=== PATIENT | female | born 1935 | race Caucasian/White ===

== ENCOUNTER 2023-05-29 08:33 | Outpatient (CLI) | payer MEDICARE | END 2023-05-29 23:59 | disposition critical access hospital (66) | LOC: EMS 08:33 | DX: R29.898 Other symptoms and signs involving the musculoskeletal system (principal) | CPT/HCPCS: A0425; A0429 ==

== ENCOUNTER 2023-05-29 09:11 | Observation (INO) | payer MEDICARE, OTHER ==
--- NOTE | 2023-05-29 09:15 | ED Physician Documentation ---
PD HPI FOCAL NEURO - Stated complaint Stated Complaint: CODE STROKE - History obtained from History obtained from: Patient - History of Present Illness Timing - onset: Enter time (814), Today Timing - duration: Minutes Timing - details: Abrupt onset, Still present in ED Severity of deficit: Mild Weakness: Arm, Right Numbness: No: Face, Arm, Hand, Leg, Foot, Right, Left Associated symptoms: No: Headache, Nausea / vomiting, Seizure, Syncope, Fall, Head injury, Chest pain, Neck pain, Back pain, Fever Baseline status: positive: A&OX3, ambulatory, indep Similar symptoms before: Has not had sx before Recently seen: Not recently seen - Additional information Additional information: 88-year-old Marianne Lewis who takes some Cardizem for tachycardia was in her usual health this morning when she awoke and before she had her coffee or water she was sitting and reading when she developed some weakness to her right arm.She has noticed that it is clumsy. She had some unusual feeling in her arm and she believes her symptoms are somewhat improved but not resolved.She has had transient dizziness previously but she has not had symptoms of weakness or incoordination. Review of Systems Constitutional: denies: Fever Eyes: denies: Decreased vision Ears: denies: Ear pain Nose: denies: Rhinorrhea / runny nose, Congestion Throat: denies: Sore throat Cardiac: denies: Chest pain / pressure, Palpitations Respiratory: denies: Dyspnea, Cough GI: denies: Abdominal Pain, Nausea, Vomiting, Constipation, Diarrhea : denies: Dysuria, Frequency Skin: denies: Rash Musculoskeletal: denies: Neck pain, Back pain, Extremity pain PD PAST MEDICAL HISTORY - Present Medications Home Medications: Ambulatory Orders Medication Instructions Recorded Confirmed Calcium Carbonate/Vitamin D3 1 each PO DAILY 05/29/23 05/29/23 [Calcium 600-Vit D3 200 Tablet] Cholecalciferol (Vitamin D3) 125 mcg PO DAILY 05/29/23 05/29/23 [Vitamin D3] Cyanocobalamin (Vitamin B-12) 1,000 mcg PO DAILY 05/29/23 05/29/23 [Vitamin B-12] Tumeric/Ging/[place]/Oreg/Capryl 1 each PO DAILY 05/29/23 05/29/23 [Candicidal Capsule] dilTIAZem HCL [Diltiazem 24Hr ER] 120 mg PO DAILY 05/29/23 05/29/23 - Allergies Allergies/Adverse Reactions: Allergies Allergy/AdvReac Type Severity Reaction Status Date / Time No Known Drug Allergies Allergy Verified 05/29/23 09:45 PD ED PE NORMAL - Vitals Vital signs reviewed: Yes (normal ) - General General: Alert and oriented X 3, No acute distress, Well developed/nourished - HEENT HEENT: Atraumatic, PERRL, EOMI - Neck Neck: Supple, no meningeal sign, No bony TTP - Cardiac Cardiac: RRR, No murmur - Respiratory Respiratory: No respiratory distress, Clear bilaterally - Abdomen Abdomen: Normal bowel sounds, Soft, Non tender, Non distended, No organomegaly - Back Back: No CVA TTP, No spinal TTP - Derm Derm: Normal color, Warm and dry, No rash - Extremities Extremities: No deformity, No edema - Neuro Neuro: Alert and oriented X 3, No motor deficit, No sensory deficit, Normal speech, Other (See NIHSS weakness not demonstrated. incoordiation demonstrated. possible R sided visual field cut is not confirmed on later exam. ) Eye Opening: Spontaneous Motor: Obeys Commands Verbal: Oriented GCS Score: 15 - Psych Psych: Normal mood, Normal affect NIHSS - Time Time: 09:10 - Level of Consciousness Level of consciousness: (0) Alert, Keenly responsive LOC Questions: (0) Answers both Q's correct LOC Commands: (0) Performs both correctly - Gaze Best Gaze: (0) Normal - Visual Visual: (1) Partial hemianopia - Facial Palsy Facial Palsy: (0) Normal, symmetrical movement - Motor Arms (both separate) Motor Arm (right): (1) Drift Motor Arm (left): (0) No drift - Motor Legs (both separate) Motor Leg (right): (0) No drift Motor Leg (left): (0) No drift - Limb Ataxia Limb Ataxia: (1) Present in 1 limb - Sensory Sensory: (0) Normal - Best Language Best Language: (0) No aphasia - Dysarthria Dysarthria: (0) Normal - Extinction and Inattention (formally neg Extinction and inattention: (0) No abnormality - Total Score/Results Total Score/Result: 3 Results - Vitals Vitals: Vital Signs - 24 hr 05/29/23 05/29/23 05/29/23 09:40 10:56 11:06 Temperature 36.5 C Heart Rate 100 85 83 Respiratory 18 18 15 Rate Blood Pressure 129/70 91/80 99/47 L O2 Saturation 97 100 94 05/29/23 11:49 Temperature Heart Rate 75 Respiratory 18 Rate Blood Pressure 113/75 O2 Saturation 94 Oxygen O2 Source Room air - EKG (time done) 0933 EKG releavant findings:: EKG personally interpreted by author of this note. Relevant findings are: Rate: Rate (enter#) (87) QRS: Low voltage Ischemia: Non specific changes Compare to prior EKG: Old EKG unavailable Computer interpretation: Agree with computer - Labs Labs: Laboratory Tests 05/29/23 05/29/23 05/29/23 09:53 09:53 10:54 WBC 13.5 H RBC 2.98 L Hgb 10.4 L Hct 33.0 L MCV 110.7 H MCH 34.9 H MCHC 31.5 L RDW 16.3 H Plt Count 109 L MPV 9.9 Neut # (Auto) Not Reportable Lymph # (Auto) Not Reportable Baca # (Auto) Not Reportable Eos # (Auto) Not Reportable Baso # (Auto) Not Reportable Absolute Nucleated RBC Not Reportable Total Counted 100 Band Neuts % (Manual) 1 Abnorm Lymph % (Manual) 0 Metamyelocytes % 3 H Myelocytes % 2 H Nucleated RBC % Not Reportable Neutrophils # (Manual) 3.0 Lymphocytes # (Manual) 8.4 H Monocytes # (Manual) 1.4 H Eosinophils # (Manual) 0.1 Basophils # (Manual) 0.0 Nucleated RBCs 1 Differential Comment MANUAL DIFFERENTIAL Manual Slide Review Indicated WBC Morphology NORMAL APPEARANCE Platelet Estimate DECREASED (<130,000) Platelet Morphology NORMAL APPEARANCE RBC Morph Micro Appear 2+ ANISOCYTOSIS Sodium 138 Potassium 3.8 Chloride 107 Carbon Dioxide 25 Anion Gap 6.0 BUN 12 Creatinine 0.8 Estimated GFR (MDRD) 68 L Glucose 109 H Calcium 9.2 Total Bilirubin 0.7 AST 26 ALT 16 Alkaline Phosphatase 82 Total Protein 6.8 Albumin 4.2 Globulin 2.6 Albumin/Globulin Ratio 1.6 Lipase 28 Nasal Adenovirus (PCR) NOT DETECTED Nasal B. parapertussis DNA (PCR) NOT DETECTED Nasal Coronavir 229E PCR NOT DETECTED Nasal Coronavir HKU1 PCR NOT DETECTED Nasal Coronavir NL63 PCR NOT DETECTED Nasal Coronavir OC43 PCR NOT DETECTED Nasal Enterovir/Rhinovir PCR NOT DETECTED Nasal Influenza B PCR NOT DETECTED Nasal Influenza A PCR NOT DETECTED Nasal Parainfluen 1 PCR NOT DETECTED Nasal Parainfluen 2 PCR NOT DETECTED Nasal Parainfluen 3 PCR NOT DETECTED Nasal Parainfluen 4 PCR NOT DETECTED Nasal RSV (PCR) NOT DETECTED Nasal B.pertussis DNA PCR NOT DETECTED Nasal C.pneumoniae (PCR) NOT DETECTED Eligio Human Metapneumo PCR NOT DETECTED Nasal M.pneumoniae (PCR) NOT DETECTED Nasal SARS-CoV-2 (PCR) NOT DETECTED - Rads (name of study) CT head Relevant Findings:: Prelim report reviewed (Impression: No acute intracranial process.), Discussed with rads, EMP independent interpretation of test head and neck angio Relevant Findings:: Prelim report reviewed (Impression: 1. Incidental note made of diminutive right vertebral artery normal variant. Otherwise unremarkable CTA head. No stenosis, aneurysm, occlusion, or focal filling defect. Widely patent carotids.) Procedures - IVC sono (time) 1003 Bedside IVC sono: IVC measures (cm) (1.11), IVC collapsed c insp (cm) (complete), Dehydration (mild about 1 liter deficit) PD Medical Decision Making - ED course Complexity details: reviewed results, re-evaluated patient, considered differential, d/w patient, d/w family, d/w bath design sales consultant (Stevo telestroke recommends admission for monitoring specifically worried about afib with recent w/u for tachycardia. Also has anemia w/u in progress. recomends baby asa, repeat echo and MRI. ) ED course: 88-year-old female with transient weakness to the right arm has resolution of her weakness has incoordination to the right arm that is persistent and she has a deficit starting at 8:30 in the morning. At 10 AM the telemetry neurologist is evaluating the patient for the potential use of thrombolytics. Her CT angio of head and neck have been read as negative. Dr. Whiteside the neurologist has recommended admission to the hospital as above. Symptoms have abated to a NIH score of [address] Whiteside has recommended not using thrombolytic. The patient and her son have agreed. The patient does have anemia and mild volume deficit. She is administered saline. She is admitted for expedited stroke work up and mon itoring. Departure - Departure Disposition: 66 [facility] DC/Xfer Clinical Impression: Cerebrovascular accident (CVA) Qualifiers: CVA mechanism: unspecified Qualified Code(s): I63.9 - Cerebral infarction, unspecified Condition: Stable Discharge Date/Time: 05/29/23 14:09
--- NOTE | 2023-05-29 09:38 | CT Report ---
PROCEDURE: Head W/O Stroke Protocol INDICATIONS: R arm weakness TECHNIQUE: Noncontrast 4.5 mm thick angled axial sections acquired from the foramen magnum to the vertex, with c oronal reformats. For radiation dose reduction, the following was used: automated exposure control, adjustment of mA and/or kV according to patient size. COMPARISON: None. FINDINGS: Image quality: Excellent. CSF spaces: Basal cisterns are patent. No extra-axial fluid collections. Ventricles are normal in size and shape. Brain: No midline shift. No intracranial masses or hemorrhage. Bhatia-white matter interface is norm al. Skull and face: Calvarium and visualized facial bones are intact, without suspicious lesions. Sinuses: Visualized sinuses and mastoids are clear. IMPRESSION: No acute intracranial process. Above discussed with Edwar Santos MD at the time of dictation on 05/29/2023 at 0936 hours. This study fulfills neurological imaging criteria for inclusion or exclusion of acute stroke therapie s based on available published neurological imaging guidelines. Reviewed by: Ric Pelletier MD on 05/29/2023 9:36 AM PDT Approved by: Ric Pelletier MD on 05/29/2023 9:36 AM PDT Station ID: [id number]
[2023-05-29 10:02] LABS: BASOPHILS % (AUTO) 0.3 %; EOSINOPHILS % (AUTO) 0.2 %; HGB - HEMOGLOBIN 10.4 g/dL (12.0-16.0); LYMPHOCYTES % (AUTO) 36.3 %; MEAN CORPUSCULAR HEMOGLOBIN 34.9 pg (27.0-31.0); MEAN CORPUSCULAR HGB CONC 31.5 g/dL (32.0-36.0); MEAN CORPUSCULAR VOLUME 110.7 fL (81.0-99.0); MEAN PLATELET VOLUME 9.9 fL (7.9-10.8); MONOCYTES % (AUTO) 37.8 %; NEUTROPHILS % (AUTO) 20.6 %; PLT - PLATELET COUNT 109 10^3/uL (130-450); RED BLOOD COUNT 2.98 10^6/uL (4.20-5.40); RED CELL DISTRIBUTION WIDTH 16.3 % (12.0-15.0); WHITE BLOOD COUNT 13.5 x10^3/uL (4.8-10.8)
[2023-05-29 10:03] LABS: ABNORMAL LYMPHS % (MANUAL) 0 %; SLIDE REVIEW? Indicated
--- NOTE | 2023-05-29 10:11 | CT Report ---
PROCEDURE: CT Angio Head/Neck INDICATIONS: R arm weakness TECHNIQUE: Pre-contrast 4.5 mm thick sections acquired from the foramen magnum to the vertex. After the adminis tration of intravenous contrast, 1 mm thick sections acquired from the aortic arch through the [place] of [place]. Post-contrast 4.5 mm thick sections then re-acquired from the foramen magnum to the vert ex. 3-dimensional mydibqs-lltbwsksl-qwudwcrmvb (MIP) and/or volume rendering reformats were acquired of the central intracranial vasculature and neck separately. For radiation dose reduction, the foll owing was used: automated exposure control, adjustment of mA and/or kV according to patient size. CONTRAST: Please see tech notes COMPARISON: CT head obtained at the beginning of the study. FINDINGS: Image quality: Excellent. BRAIN (from accompanying CT scan study): CSF spaces: Ventricles are normal in size and shape. Basal cisterns are patent. No extra-axial flu id collections. Brain: No midline shift. No intracranial bleeds or masses. Bhatia-white matter interface appears int act. Skull and face: Calvarium and facial bones appear intact, without suspicious lesions. Orbits appear normal. Sinuses: Sinuses and mastoids are clear. HEAD CT ANGIOGRAPHY: Anterior circulation: Intracranial internal carotid arteries are normal in size and flow. The flow within the paired anterior cerebral arteries is normal and symmetric. The flow within the middle cer ebral arteries is normal and symmetric. The anterior communicating artery is seen. No aneurysms are seen. Posterior circulation: The distal right vertebral artery is diffusely diminutive, and the V4 segment is very diminutive. This is normal variant anatomy. The left vertebral artery is dominant, and widely patent. They join to form a normal appearing basilar artery. Flow within the posterior cerebral angel holden is normal and symmetric. No aneurysms are seen. NECK CT ANGIOGRAPHY: Carotid system: The great vessels demonstrate a conventional anatomy as they arise from the aortic a rch. The origins of the common carotid arteries appear patent. The common carotid arteries demonstr ate normal caliber and courses. The bifurcation regions are both widely patent. The internal caroti d arteries demonstrate normal calibers and courses. Posterior circulation: Left vertebral artery is dominant and widely patent. Right vertebral artery is diffusely diminutive, and very diminutive at the V4 segment. They join to form a normal appearing ba silar artery. Soft tissues: Visualized neck soft tissues demonstrate no suspicious abnormalities. Bones: No suspicious bony lesions. Visualized cervical spine appears normally aligned. IMPRESSION: 1. Incidental note made of diminutive right vertebral artery, normal variant. 2. Otherwise unremarkable CTA head. No stenosis, aneurysm, occlusion, or focal filling defect. 3. Widely patent carotids. Above discussed with Edwar Santos MD at the time of initial study interpretation on 05/29/2023 094 9 hours. The estimate of stenosis included in the report of the imaging study was calculated using the NASCET method Reviewed by: Ric Pelletier MD on 05/29/2023 10:09 AM PDT Approved by: Ric Pelletier MD on 05/29/2023 10:09 AM PDT Station ID: [id number]
[2023-05-29 10:20] LABS: ALBUMIN 4.2 g/dL (3.2-5.5); ALBUMIN/GLOBULIN RATIO 1.6 (1.0-2.2); BILIRUBIN,TOTAL 0.7 mg/dL (0.2-1.0); CALCIUM 9.2 mg/dL (8.5-10.3); CREATININE 0.8 mg/dL (0.6-1.3); POTASSIUM 3.8 mmol/L (3.5-4.5); TOTAL PROTEIN 6.8 g/dL (6.4-8.9)
[2023-05-29 10:25] LABS: BAND NEUTROPHILS % (MANUAL) 1 %; EOSINOPHILS # (MANUAL) 0.1 10^3/uL (0-0.7); LYMPHOCYTES # (MANUAL) 8.4 10^3/uL (1.5-3.5); LYMPHOCYTES % (MANUAL) 62 %; METAMYELOCYTES % (MANUAL) 3 %; MONOCYTES # (MANUAL) 1.4 10^3/uL (0.0-1.0); MYELOCYTES % (MANUAL) 2 %; NUCLEATED RBC (MANUAL) 1 %
[2023-05-29 10:28] LABS: DIFFERENTIAL COMMENT MANUAL DIFFERENTIAL; PLATELET ESTIMATE, MANUAL DECREASED (<130,000) (NORMAL); PLATELET MORPHOLOGY NORMAL APPEARANCE (NORMAL); WBC MORPHOLOGY (MULTIPLE) NORMAL APPEARANCE (NORMAL)
[2023-05-29] MEDS ORDERED: ASPIRIN CHEW 81 MG TABLET PO STA (10:29)
[2023-05-29] MEDS ORDERED: iohexoL-300 100 ML VIAL IVP ONE (11:22)
[2023-05-29 11:51] LABS: B. PARAPERTUSSIS- RESP PCR PAN NOT DETECTED; B. PERTUSSIS- RESP PCR PANEL NOT DETECTED; C. PNEUMONIAE- RESP PCR PANEL NOT DETECTED; CORONAVIRUS 229E-RESP PCR NOT DETECTED; CORONAVIRUS HKU1-RESP PCR NOT DETECTED; CORONAVIRUS NL63-RESP PCR NOT DETECTED; CORONAVIRUS OC43-RESP PCR NOT DETECTED; HUMAN METAPNEUMOVIRUS NOT DETECTED; INFLUENZA A- RESP PCR PANEL NOT DETECTED; INFLUENZA B - RESP PCR PANEL NOT DETECTED; M. PNEUMONIAE- RESP PCR PANEL NOT DETECTED; PARAINFLUENZA VIRUS 1 NOT DETECTED; PARAINFLUENZA VIRUS 2 NOT DETECTED; PARAINFLUENZA VIRUS 3 NOT DETECTED; PARAINFLUENZA VIRUS 4 NOT DETECTED; RHINOVIRUS/ENTEROVIRUS NOT DETECTED; RSV- RESP PCR PANEL NOT DETECTED; SARS-CoV-2 -RESP PCR PANEL NOT DETECTED
[2023-05-29] MEDS ORDERED: ONDANSETRON ODT 4 MG TABLET TL PRN (12:07)
[2023-05-29] MEDS ORDERED: SODIUM CHLORIDE FLUSH 0.9% 10 ML SYRINGE IVP PRN (12:07)
[2023-05-29] MEDS ORDERED: ONDANSETRON 4 MG/2 ML VIAL IVP PRN (12:07)
[2023-05-29] MEDS ORDERED: oxyCODONE 5 MG TABLET PO PRN (12:54)
[2023-05-29] MEDS ORDERED: ACETAMINOPHEN 325 MG TABLET PO PRN (12:54)
[2023-05-29] MEDS ORDERED: ATORVASTATIN 40 MG TABLET PO STA (12:56)
[2023-05-29] MEDS ORDERED: SODIUM CHLORIDE 0.9% 1,000 ML IV SCH (13:00)
--- NOTE | 2023-05-29 13:01 | HISTORY & PHYSICAL EXAMINATION ---
Chief Complaint - Chief Complaint Chief Complaint: right body weakness and word problems History of Present Illness - Admitted From Admitted From:: home via EMS - History Obtained From Records Reviewed: [facility] History obtained from: Dr. Santos Exam Limitations: none - History of Present Illness HPI Comment/Other: 88-year-old female who was brought to the emergency room by ambulance because she began having right arm weakness and heaviness that started at 820 in the morning. She was brought by EMS by 940 in the morning. Her past medical history is that Of "tachycardia" but she takes no medications for high blood pressure, high cholesterol, or diabetes. She does take diltiazem for the "tachycardia". To her knowledge she does not recall an event monitor, a loop recorder to find out if her tachycardia was atrial fibrillation or not. She does not remember hearing the phrase atrial fibrillation. She is a non-smoker. In the emergency room she was normotensive with normal vital signs. She had partial hemianopia, right arm drift, right arm ataxia and right leg ataxia. But no dysarthria or dysphagia. CT of the head was negative. She has received aspirin. Review of systems was positive for cataracts on ENT questioning. She denies any positive pulmonary review of systems. About 2 or 3 months ago she had a day and a half episode where she was very short of breath. Could hardly climb the stairs in her house. Did not know why. And she felt her heart knocking so hard underneath her breastbone that she sometimes felt like she could hear in her ears. But she denies chest pain, jaw pain, edema, orthopnea. When it went away after a day and a half she did not think much more about it. About 2 weeks ago she noted a transient episode of leg edema but that also went away on its own. As for GI review of systems she is negative. She has never had a colonoscopy. On she is positive for urinary incontinence, cystocele, rectocele after 4 vaginal deliveries. She had a pessary in that she took out about a year ago and she has not used it since. 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 Sometimes in her hips. She has had stem cell injections into her knees but it has not helped. She is starting to lose memory with regards to finding words. But she still pays the bills. Still drives. Her has dementia and she is his primary caregiver. He is easy to take care of because he is not violent, does not wander. He responds to her and will be easily prompted or c ued by her.She has noticed new skin problems. She denies any depression, suicidal ideation, anxiety. She denies any constitutional symptoms or endocrine symptoms. The emergency room provider contacted me. We discussed the case and her risk for stroke. I have agreed to place her in observation status for TIA. History - Past Medical History Cardiovascular: reports: Arrhythmia Respiratory: reports: None Neuro: reports: None Endocrine/Autoimmune: reports: None GI: reports: None, Other (have never had a colonscopy) CONSOLE ATTENDANT: reports: Other (, all vaginal w cystocele and rectocele) : reports: None HEENT: reports: Chronic vision loss (and has cataracts) Psych: reports: None Musculoskeletal: reports: Osteoarthritis Derm: reports: None - Family & Social History Family History Comment/Other: Dad in his mid 60s of complications of em physema from cigar and pipe smoking. Mom in her late 80s of old age. 1 sister who at age 11 of a cerebral hemorrhage. 4 children are completely healthy. Living arrangement: At home Living Situation: With spouse/s.o. Social History Notes: Her 's job [place] and she moved the household with 4 kids. [place]. They still live in their own home. A data management associate comes by 2 or 3 times a week to help her. Son lives across the street. She never smoked. Drinks 1- 2 glasses of wine a night. No recreational substance abuse history. - Substance History Use: Uses substance without health or social issues: Alcohol Abuse: Recurrent use of substance despite neg consequences: NONE Dependence: Experiences withdrawal or developed tolerances: NONE - POLST Patient has POLST: Yes POLST Status: DNR Meds/Allgy - Home Medications Home Medications: Ambulatory Orders Medication Instructions Recorded Confirmed Calcium Carbonate/Vitamin D3 1 each PO DAILY 05/29/23 05/29/23 [Calcium 600-Vit D3 200 Tablet] Cholecalciferol (Vitamin D3) 125 mcg PO DAILY 05/29/23 05/29/23 [Vitamin D3] Cyanocobalamin (Vitamin B-12) 1,000 mcg PO DAILY 05/29/23 05/29/23 [Vitamin B-12] Tumeric/Ging/Maple/Oreg/Capryl 1 each PO DAILY 05/29/23 05/29/23 [Candicidal Capsule] dilTIAZem HCL [Diltiazem 24Hr ER] 120 mg PO DAILY 05/29/23 05/29/23 - Allergies Allergies/Adverse Reactions: Allergies Allergy/AdvReac Type Severity Reaction Status Date / Time No Known Drug Allergies Allergy Verified 05/29/23 09:45 Review of Systems - Other Findings Other Findings: A complete review of systems documented in HPI Prior Level of Functionality: Slow down by the arthritis in her knees but otherwise independent with activities of daily living. Does not drive much anymore and her son takes her to her PCP at [facility], Dr. Neal. Has a data management associate that comes by 2-3 times a week. Does not use any durable medical equipment. Most of her time spent taking care of of her because of his dementia Exam - Vital Signs Reviewed Vital Signs: Yes Vital Signs: Vital Signs x48h Temp Pulse Resp BP Pulse Ox 05/29/23 12:37 79 15 124/81 H 97 05/29/23 12:08 80 15 117/73 96 05/29/23 11:49 75 18 113/75 94 05/29/23 11:06 83 15 99/47 L 94 05/29/23 10:56 85 18 91/80 100 05/29/23 09:40 36.5 C 100 18 129/70 97 - Physical Exam General Appearance: positive: No acute distress, Alert (Speech lucid, normal sentence structure, feeding herself dinner), Other (4 foot 11 inches, 52 kg with an appearance of gauntness.) Eyes Bilateral: positive: PERRL, EOMI ENT: positive: Pharynx nml, No signs of dehydration Neck: positive: No JVD. negative: Stiff neck Respiratory: positive: No respiratory distress. negative: Wheezes, Rales, Rhonchi Cardiovascular: positive: Regular rate & rhythm Peripheral Pulses: positive: 1+ Abdomen: positive: Non-tender, No organomegaly, Nml bowel sounds, No distention Skin: positive: Warm, Dry Extremities: positive: Non-tender, Full ROM, No pedal edema Neurologic/Psychiatric: positive: Oriented x3, Mood/affect nml. negative: CN's nml (2-12) (slight facial droop on R), Motor nml (slight pronator drift on R, R leg lifts less quickly than L but does lift w equal plantar/dorsiflexion) Conclusion/Plan - Problem List (1) Cerebrovascular accident (CVA) Conclusion/Plan: She does not have any increased risk for stroke other than that of age. She does not smoke, does not have high cholesterol, does not have high blood pressure. However, she has this vague history of "tachycardia". EKG demonstrates normal sinus rhythm. She also had an episode of a hard knocking heart rate and shortness of breath about 2 to 3 months ago that could have been A-fib with RVR. My suspicion is that she may have stroke from that. However her risk of stroke, just because of age, is still present. Plan: Observation status MRI of the head CT angiogram of head and neck Aspirin already given in the ER and will start aspirin daily Atorvastatin 40 mg and start daily Lipid panel in the morning Echocardiogram tomorrow PT and OT eval. I do not think she is going to need transfer for rehab nor will she need to stay much longer for a stroke diagnosis since her exam has minimal right-sided findings. She is feeding herself without any tremor. Able to swallow without any dysphagia or dysarthria. Qualifiers: CVA mechanism: unspecified Qualified Code(s): I63.9 - Cerebral infarction, unspecified - Lab Results Lab results reviewed: Yes Maurilio Bones: 05/29/23 09:53 05/29/23 09:53 - Diagnostic Imaging Results Diagnostic Imaging Results: positive: Final report reviewed - EKG Results EKG Interpreted Independently: No EKG Comparison: No prior EKG (Normal sinus rhythm without acute ST-T wave changes) Core Measures - Anticipated LOS I expect patient to be DC'd or transferred within 96 hours.: Yes - DVT/VTE - Prophylaxis VTE/DVT Prophylaxis med ordered at admit?: Yes - Stroke - Rehab Assessment Rehab services assessment to be ordered?: Yes
--- NOTE | 2023-05-29 14:28 | PHARMACY PROGRESS NOTE ---
- Best Possible Medication History Admit Date and Time: 05/29/23 1207 Processed by: Pharmacy Medication History completed: Yes Patient Interview: Completed Secondary Source(s): Written medication list, Physician records (MED REC DONE AGAINST PT'S DR NOTE TO PT THAT HAS ALL PT'S MEDS LISTED.) As the person ultimately responsible for medication therapy, providers are able to order a medication from an existing home medication list in [facility] via the "Reconcile Routine" prior to Confirmation of that medication by windows server support technician. Such practice is discouraged except when the physician, in their clinical judgment, deems that a medical need exists for a medication without regard to previous use.
[2023-05-29] MEDS: SODIUM CHLORIDE FLUSH 0.9% 10 ML SYRINGE IVP SCH ×2 (16:27→23:46)
--- NOTE | 2023-05-29 16:33 | MRI Report ---
PROCEDURE: BRAIN WO INDICATIONS: new tia TECHNIQUE: Noncontrast axial T1 spin echo, axial T2 fast spin echo, sagittal and axial FLAIR, coronal T2 fast sp in echo, axial gradient echo, axial diffusion and ADC through the brain. COMPARISON: CTA head and neck from the same date. FINDINGS: Image quality: Excellent. CSF Spaces: Basal cisterns are patent. No extra-axial fluid collections. Ventricles are normal in size and shape. Brain: No intracranial masses or hemorrhage. Bhatia/white matter interface is normal. Brainstem appe ars normal. Diffusion-weighted images demonstrate numerous tiny bilateral areas of restricted water diffusion bilaterally consistent with embolic showering, likely from a cardiogenic source. For christian lynch, on image 32/12 there are 2 focal tiny areas of acute infarct in the left cerebellar hemisphere. On image 39/12 there is a tiny bhatia-white junction area of acute infarct in the right occipital lobe. On image 44/12, there is a tiny area of posterior left parietal cortex infarct as well as left poste rior frontal bhatia-white junction and cortical areas of tiny infarct, as well as tiny areas of right f rontal cortical and subcortical infarct. On image 45/12 is a area of left posterior gyrus cortical in farct. On image 46/12 are 4 separate areas of tiny bilateral infarct. Age-related volume loss and mil d small vessel ischemic change. No chronic ischemic insults. Normal intravascular flow voids are pre sent. Skull and face: Calvarium has normal marrow signal. Orbits appear normal. Sinuses: Sinuses and mastoids are clear. IMPRESSION: 1. There are numerous very tiny areas of acute infarct bilaterally, likely involving both the posteri or circulation and the anterior circulation bilaterally. This suggests a probable cardiac source of e mbolic phenomena. 2. Underlying mild small vessel ischemic change. Reviewed by: Ric Pelletier MD on 05/29/2023 4:32 PM PDT Approved by: Ric Pelletier MD on 05/29/2023 4:32 PM PDT Station ID: [id number]
[2023-05-30 05:52] LABS: CHOL/HDL RATIO 3.4 (<4.4); CHOLESTEROL 139 mg/dL; HDL CHOLESTEROL 41 mg/dL; LDL CHOLESTEROL,CALCULATED 77 mg/dL; LDL/HDL RATIO 1.9 (<4.4); TRIGLYCERIDES 105 mg/dL (48-352); VLDL CHOLESTEROL 21 mg/dL
[2023-05-30 07:24] LABS: ABSOLUTE RETICS # AUTO 0.056 10^6/uL (0.020-0.110); RED BLOOD COUNT 2.65 10^6/uL (4.20-5.40); RETICULOCYTE COUNT % (AUTO) 2.1 % (0.5-2.3)
[2023-05-30 07:43] VITALS: BP 116/69; O2SAT 94
[2023-05-30 09:09] LABS: THYROID STIMULATING HORMONE 3.51 uIU/mL (0.34-5.60)
[2023-05-30] MEDS: SODIUM CHLORIDE FLUSH 0.9% 10 ML SYRINGE IVP SCH (09:45)
[2023-05-30] MEDS ORDERED: diltiaZEM CD 120 MG CAPSULE PO SCH (10:30)
--- NOTE | 2023-05-30 10:35 | DISCHARGE SUMMARY ---
Discharge Summary Admit Date: 05/29/23 Discharge Date: 05/30/23 Discharging Provider: Diana Juan MD Primary Care Provider: MD Ángel @ [facility] Code Status: Do Not Attempt Resuscitation Condition at Discharge: Stable Discharge Disposition: 01 Home, Self Care - DIAGNOSES Discharge Diagnoses with Status of Each Condition: 1. Multiple embolic strokes 2. History of tachycardia 3. Mild cognitive deficits 4. Pancytopenia - HPI History of Present Illness: 88-year-old female who was brought to the emergency room by ambulance because she began having right arm weakness and heaviness that started at 820 in the morning. She was brought by EMS by 940 in the morning. Her past medical history is that Of "tachycardia" but she takes no medications for high blood pressure, high cholesterol, or diabetes. She does take diltiazem for the "tachycardia". To her knowledge she does not recall an event monitor, a loop recorder to find out if her tachycardia was atrial fibrillation or not. She does not remember hearing the phrase atrial fibrillation. She is a non-smoker. In the emergency room she was normotensive with normal vital signs. She had partial hemianopia, right arm drift, right arm ataxia and right leg ataxia. But no dysarthria or dysphagia. CT of the head was negative. She has received aspirin. Review of systems was positive for cataracts on ENT questioning. She denies any positive pulmonary review of systems. About 2 or 3 months ago she had a day and a half episode where she was very short of breath. Could hardly climb the stairs in her house. Did not know why. And she felt her heart knocking so hard underneath her breastbone that she sometimes felt like she could hear in her ears. But she denies chest pain, jaw pain, edema, orthopnea. When it went away after a day and a half she did not think much more about it. About 2 weeks ago she noted a transient episode of leg edema but that also went away on its own. As for GI review of systems she is negative. She has never had a colonoscopy. On she is positive for urinary incontinence, cystocele, rectocele after 4 vaginal deliveries. She had a pessary in that she took out about a year ago and she has not used it since. 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 Sometimes in her hips. She has had stem cell injections into her knees but it has not helped. She is starting to lose memory with regards to finding words. But she still pays the bills. Still drives. Her has dementia and she is his primary caregiver. He is easy to take care of because he is not violent, does not wander. He responds to her and will be easily prompted or cued by her.She has noticed new skin problems. She denies any depression, suicidal ideation, anxiety. She denies any constitutional symptoms or endocrine symptoms. The emergency room provider contacted me. We discussed the case and her risk for stroke. I have agreed to place her in observation status for TIA. - CONSULTS | PROCEDURES Procedures: 24 hours of telemetry had normal sinus rhythm EKG had normal sinus rhythm with first-degree AV block Echocardiogram was done before discharge and Preliminary report showed an ejection fraction of 60 to 65%. Grade 2 diastolic heart failure. No regional wall motion abnormalities. Very large right and left atria. RVSP mildly elevated at 47. CT of the head has no acute intracranial pathology Angiography of the head and neck has right vertebral arteries that are very diminutive but considered a normal variant anatomy. Left vertebral artery is dominant and widely patent. But there is no stenosis of the intracerebral arteries or the carotid system. There are no aneurysms, occlusions or focal filling defects. - HOSPITAL COURSE Hospital Course: After being placed in observation status, the MRI report came back. She has watershed strokes, tiny ones, of bilateral hemispheres. This put her ta chycardia in the forefront as a diagnosis for possible intermittent atrial fibrillation. Echocardiogram was done right before discharge but final report is pending. She should be started on a blood thinner even though EKG and telemetry shows normal sinus rhythm. I would like to confirm the possibility of intermittent atrial fibrillation with an event monitor or reveal loop depending on what her primary care provider chooses.If this current echocardiogram does not confirm vegetations, this patient will need a possible transesophageal echo.I am asking for a bubble study looking for PFO. And spite of the multiple infarcts, this patient is remarkably spared with regards to ataxia, memory, mobility. She was getting up and out of bed to go to the bathroom by herself. Going to the sink to wash her hands, brush her teeth. Brushing her hair. She was able to get up out of bed to sit at the table to eat her breakfast and feed herself without any dysmetria, tremors. She has a very slight left facial droop. Memory loss is evident and that she is repetitive in her questions and many repeat questions were asked yesterday and on the day of discharge. I am recommending that she not drive for a few more months until she is seen by her primary care provider, neurology, and cardiology. I am starting her on anticoagulation on the presumption of probable atrial fibrillation. I have sent 2 prescriptions to the pharmacy which is Eliquis and Xarelto. 1 of those should be cheaper for her and I am asking the pharmacy to prior provider with the cheapest 1. At discharge temperature was 36.5. Heart rate 83 and sinus rhythm on telemetry. Blood pressure 116/69. Respirations 18. 94% on room air. She is a slender slight elderly female who looks younger than stated age. She is 4 foot 11 inches tall and 52.5 kg. Well-groomed. Alert and oriented to person, place, time, and situation. Anxiety may be leading to some memory loss. Neck is supple. Lungs are clear to auscultation and percussion. Regular rate and rhythm without a murmur. The abdomen is soft, nontender, normal bowel sounds, no masses. Legs have no edema at all. She does have a very slight nasolabial fold droop on cranial nerve exam. But the pronator drift in right arm has improved. The feeling of dragging her right leg is also abated. She is discharged in stable condition with instructions to follow-up with her primary care provider as soon as possible. - ALLERGIES Allergies/Adverse Reactions: Allergies Allergy/AdvReac Type Severity Reaction Status Date / Time No Known Drug Allergies Allergy Verified 05/29/23 09:45 - MEDICATIONS Home Medications: Ambulatory Orders Medication Instructions Recorded Confirmed Calcium Carbonate/Vitamin D3 1 each PO DAILY 05/29/23 05/29/23 [Calcium 600-Vit D3 200 Tablet] Cholecalciferol (Vitamin D3) 125 mcg PO DAILY 05/29/23 05/29/23 [Vitamin D3] Cyanocobalamin (Vitamin B-12) 1,000 mcg PO DAILY 05/29/23 05/29/23 [Vitamin B-12] Tumeric/Ging/Independence/Oreg/Capryl 1 each PO DAILY 05/29/23 05/29/23 [Candicidal Capsule] dilTIAZem HCL [Diltiazem 24Hr ER] 120 mg PO DAILY 05/29/23 05/29/23 Apixaban [Eliquis] 10 mg PO BID #28 tablet 05/30/23 Atorvastatin [Lipitor] 40 mg PO QPM tab 05/30/23 Rivaroxaban [Xarelto] 15 mg PO BID #42 tablet 05/30/23 - LABS Result Diagrams: 05/29/23 09:53 05/29/23 09:53
--- NOTE | 2023-05-30 10:37 | Discharge Plan ---
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 You have had years of a fast heart rate that has been treated with diltiazem. You do not remember if you ever had a work-up for any other arrhythmia. You now present with sudden changes in weakness in your body. Your CT of head was negative for hemorrhage or stroke. However, your MRI of the brain has multiple small, tiny bilateral strokes consistent with embolic showering. That means that we think small tiny clots of left your heart and went downstream through your arteries to then shower your brain with small clots. We need to find the source of that. Thankfully you have not had much deficit from this. You do have mild memory loss. You are repetitive. But otherwise you are able to get up out of bed, walk across room, go to the bathroom, brush your hair, wash your hands, and feed yourself without any difficulty. Plan of Treatment: 1. You need to see your primary care provider in follow-up because the need to complete the work-up for why this happened. My suspicion is that of something called atrial fibrillation which is an irregularly, irregular heart rate which can be very fast. It can come and go. It does not always need to be present. But it leads to a risk of small clots forming in the heart and then going downstream to give you a stroke. One of the tests I would like Dr. Jean to do is evaluate your heart rate by a manager long term care monitor. You need to wear a monitor for 30 days to see if you get atrial fibrillation. She may need to send you to a Neurologist or Automotive Electrical [employer]per. The echocardiogram which is the ultrasound of your heart was done right before you were discharged. There was only a very minimal preliminary report. Your doctor needs to see the final report. Make sure she ask for it 2. I am going to be starting you on a blood thinner with the assumption that you have atrial fibrillation. 3. Please do not drive at this time. Reflexes and memory have been slightly impaired with these small strokes. Wait 2-3 more months before resuming driving. Care Goals: You would like to remain in your own home for as long as possible. The issue of stroke is really dismayed you. You also have the issue of taking care of your . You stated that you have very supportive children and you plan on working with them to figure out what the solution is for your care and your 's care. Assessment: Patient is alert, oriented to person, place, situation. Is writing everything down and promises to follow through with my instructions No Smoking: If you smoke, Please STOP! Call for help. Follow-up with: KARY JEAN, [Primary Care Provider] -
[2023-05-30] MEDS ORDERED: ATORVASTATIN 40 MG TABLET PO SCH (21:00)
== END 2023-05-30 12:50 | disposition home or self-care (01) ==
LOC: EDUNIT# → ED 09:11 → MS2 12:07
PROVIDERS: ADMIT Specialist; ATTEND Specialist
DX: I63.40 Cerebral infarction due to embolism of unspecified cerebral artery (principal); G83.21 Monoplegia of upper limb affecting right dominant side; R29.703 NIHSS score 3; R41.89 Other symptoms and signs involving cognitive functions and awareness; D61.818 Other pancytopenia; R00.0 Tachycardia, unspecified; H53.47 Heteronymous bilateral field defects; R27.0 Ataxia, unspecified; H54.7 Unspecified visual loss; H26.9 Unspecified cataract; M19.90 Unspecified osteoarthritis, unspecified site; Z20.822 Contact with and (suspected) exposure to COVID-19; Z66 Do not resuscitate; Z82.3 Family history of stroke; Z82.5 Family history of asthma and other chronic lower respiratory diseases
CPT/HCPCS: 36415; 70450; 70496; 70498; 70551; 80053; 80061; 82607; 82746; 83540; 83615; 83690; 84443; 84466; 85025; 85045; 87633; 93005; 93306; 97161; 99284; 99285; A9270; G0378; Q9967; 81001; 81003; 83721; 87086